=== PATIENT | male | born 1970 | race Caucasian/White ===

== ENCOUNTER → 2018-03-27 | Outpatient (CLI) | payer BC ==
[2018-03-27 07:51] LABS: BASOPHILS # (AUTO) 0.04 x10^3/uL (0-0.1); BASOPHILS % (AUTO) 1 % (0-1); EOSINOPHILS # (AUTO) 0.26 x10^3/uL (0-0.4); EOSINOPHILS % (AUTO) 5 % (1-7); LYMPHOCYTES # (AUTO) 1.71 x10^3/uL (1-3.4); LYMPHOCYTES % (AUTO) 29 % (22-44); MD NO; MEAN CORPUSCULAR HEMOGLOBIN 29.5 pg (27.5-34.5); MEAN CORPUSCULAR HGB CONC 33.5 g/dL (33.2-36.2); MEAN CORPUSCULAR VOLUME 88.3 fL (81-97); MEAN PLATELET VOLUME 6.2 fL (7.4-10.4); MONOCYTES % (AUTO) 9 % (2-9); NEUTROPHILS # (AUTO) 3.33 x10^3/uL (1.8-6.8); NEUTROPHILS % (AUTO) 57 % (42-75); PLATELET COUNT 231 x10^3/uL (130-400); RED BLOOD COUNT 5.26 x10^6/uL (4.38-5.82); RED CELL DISTRIBUTION WIDTH 12.9 % (9.4-14.8)
[2018-03-27 08:03] LABS: ALANINE AMINOTRANSFERASE 29 U/L (12-78); ALBUMIN 3.8 g/dL (3.4-5.0); ANION GAP 3 mmol/L (5-15); CALCIUM 8.9 mg/dL (8.5-10.1); CHLORIDE 108 mmol/L (98-107); CREATININE 1.25 mg/dL (0.7-1.3)
[2018-03-27 08:11] LABS: ALKALINE PHOSPHATASE 77 U/L (45-117); CHOL/HDL RATIO 3.8; CHOLESTEROL, TOTAL 184 mg/dL (140-239); FREE T4 (FREE THYROXINE) 0.97 ng/dL (0.76-1.46); HDL CHOL % 27 % (26-37); HDL CHOLESTEROL (DIRECT) 49 mg/dL (40-60); LDL CHOLESTEROL,CALCULATED 119 mg/dL (54-169); LDL/HDL RATIO 2.4 (0.5-3.0); TOTAL PROTEIN 7.5 g/dL (6.4-8.2); TRIGLYCERIDES 81 mg/dL (50-200); VLDL CHOLESTEROL 16 mg/dL (0-25)
== END | disposition home or self-care (01) ==
LOC: LAB 07:39
PROVIDERS: ATTEND Psychiatry & Neurology Psychiatry
DX: F31.70 Bipolar disorder, currently in remission, most recent episode unspecified (principal); F10.21 Alcohol dependence, in remission
CPT/HCPCS: 36415; 80053; 80061; 82306; 84439; 84443; 85025

== ENCOUNTER 2020-08-03 11:15 | Emergency (ER) | payer BC ==
[~2020-08-03] VITALS: Ht 170.2 cm; Wt 72.7 kg
--- NOTE | 2020-08-03 11:31 | NUR ---
PT BIB [facility] FOR C/O BACK SPASMS FOR WHICH PT HAS HAD A HX OF (NON-TRAUMATIC IN NATURE), RECENTLY PRESCRIBED FLEXERIL, PT TOOK 5 5MG TAB THIS AM WITHOUT RELEIF. THEN CALLED EMS. PT RECEIVED 1MG VERSED IV RN UNIT MANAGER. PT WITH COMPLETE RELEIF OF SPASMS UPON ARRIVAL PT TO [facility], CONT PULSE OX. AWAITING ERP EVAL/ORDERS
[2020-08-03] MEDS ORDERED: KETOROLAC 30 MG/1 ML ONE (12:51)
[2020-08-03] MEDS ORDERED: METHOCARBAMOL 750 MG TABLET ONE (12:51)
[2020-08-03] MEDS ORDERED: KETOROLAC 30 MG/1 ML IVPush ONE (13:00)
[2020-08-03] MEDS ORDERED: PLEASE ENTER ALLERGIES MC SCH (13:00)
[2020-08-03] MEDS ORDERED: KETOROLAC 30 MG/1 ML IM ONE (13:00)
[2020-08-03] MEDS ORDERED: METHOCARBAMOL 750 MG TABLET PO ONE (13:00)
--- NOTE | 2020-08-03 13:00 | NUR ---
PT MEDICATED PER MAR
--- NOTE | 2020-08-03 13:20 | NUR ---
assumed care of pt. report from Lexi OBREGON. 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 pt denies spasm and reports that he has a decrese in pain after meds. no apparent distress. no family at bedside. pt upated on POC
[2020-08-03 13:32] VITALS: BP 96/68
--- NOTE | 2020-08-03 14:04 | NUR ---
chart up for MD recheck
--- NOTE | 2020-08-03 14:44 | NUR ---
Dr. Hutchinson has peggy to bedside for eval pt sated that he was having difficulty standing tech has been to bedside for walker. pt able to stand and amblate with walker
--- NOTE | 2020-08-03 15:24 | NUR ---
this pt was D/C by another RN
== END 2020-08-03 15:24 | disposition home or self-care (01) ==
LOC: ED 13:58
DX: S39.012A Strain of muscle, fascia and tendon of lower back, initial encounter (principal); X58.XXXA Exposure to other specified factors, initial encounter; Y93.89 Activity, other specified; Y92.89 Other specified places as the place of occurrence of the external cause; Y99.8 Other external cause status
CPT/HCPCS: 96374; 99283; J1885